=== PATIENT | male | born 1995 | race Caucasian/White ===

== ENCOUNTER 2020-03-09 15:29 | Emergency (ER) | payer OTHER, SELFPAY ==
--- NOTE | ~2020-03-09 | CT_ITS ---
EXAMINATION: CT brain wo [facility] EXAM DATE: 03/09/2020 16:24 INDICATION: Fall, frontal head injury. TECHNIQUE: Spiral CT of the head was performed without contrast. Axial, coronal and sagittal images were reviewed. The dose-length product (DLP) for this examination was 605.33 mGy-cm. The exposure w as tailored according to patient size, and iterative reconstruction (ASIR) was used as additional dos e reduction technique. There is no prior study for comparison. FINDINGS: There is no acute intraparenchymal hemorrhage. No evidence of intraparenchymal brain mass lesion. No evidence of acute infarction. There is no mass effect or midline shift. The ventricles are normal in size. There are no extra-axial collections. There are no acute calvarial fractures. T he orbits are unremarkable. Small right frontal scalp contusion. The visualized sinuses and mastoid air cells are well aerated. IMPRESSION: 1. No acute intracranial findings. 2. Small right frontal scalp contusion. Reviewed, dictated and finalized at location A.
[2020-03-09 15:36] VITALS: BP 142/75; PULSE 108; RESP 18; TEMP 37.6
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
[2020-03-09 17:00] VITALS: BP 132/70; PULSE 78; RESP 18; O2SAT 99
== END 2020-03-09 17:01 | disposition home or self-care (01) ==
PROVIDERS: Emergency Provider Emergency Medicine
DX: S06.0X0A Concussion without loss of consciousness, initial encounter (principal); V58.1XXA Passenger in pick-up truck or van injured in noncollision transport accident in nontraffic accident, initial encounter
CPT/HCPCS: 70450; 99284